=== PATIENT | male | born 1945 | race Caucasian/White ===

== ENCOUNTER 2017-12-13 00:14 | Inpatient (IN) | payer OTHER ==
[2017-12-13] VITALS (9 sets, daily range): BP systolic 103–189; BP diastolic 45–93
[~2017-12-13] VITALS: Ht 180.3 cm; Wt 65.8 kg
[~2017-12-13 00:14] MED LIST: FOLIC ACID1 MG PO; KEPPRA 500 MG500 M1 PO; MULTIVITAMINS1 EAC7 PO; REMERON15 MG PO; RESTORIL15 MG PO; VITAMIN B-1100 M1 PO
[2017-12-13 01:12] LABS: ABSOLUTE NEUTROPHILS 5.6 thou/uL (1.4-8.2); BASOPHILS 0.2 % (0.0-2.0); EOSINOPHILS 0.1 % (0.0-3.0); HEMATOCRIT 34.3 % (42.0-52.0); HEMOGLOBIN 12.1 gm/dL (14.0-18.0); LYMPHOCYTES 13.4 % (24.0-44.0); MCH 30.2 pg (26.0-34.0); MCHC 35.2 g/dL (28.0-37.0); MCV 85.9 fL (80.0-100.0); MONOCYTES 6.4 % (1.0-8.0); PLATELET COUNT 197 thou/uL (150-400); POLYS 79.9 % (36.0-66.0); RDW 12.5 % (10.5-14.5)
[2017-12-13 01:18] LABS: CALCIUM 7.9 mg/dL (8.5-10.1); CREATININE 0.6 mg/dL (0.7-1.3); POTASSIUM 3.6 mmol/L (3.5-5.1)
[2017-12-13 01:24] LABS: ALBUMIN 3.7 g/dL (3.4-5.0); APTT 29.9 Seconds (24.5-32.8); PROTIME 10.7 Seconds (9.3-11.4); TOTAL BILIRUBIN 0.9 mg/dL (<0.1-1.0); TOTAL PROTEIN 6.6 g/dL (6.4-8.2)
[2017-12-13] MEDS ORDERED: TYLENOL325 MG PO (01:25)
[2017-12-13] MEDS ORDERED: ONDANSETRON HCL4 M2 PO (01:26)
[2017-12-13] MEDS ORDERED: NAMENDA 10 MG T10 MG PO (01:30)
[2017-12-13] MEDS ORDERED: RISPERDAL 1 MG T1 MG PO (01:30)
[2017-12-13] MEDS ORDERED: TRAZODONE HCL50 MG PO (01:30)
[2017-12-13] MEDS ORDERED: RIVASTIGMINE1.5 MG PO (01:30)
[2017-12-13 06:40] LABS: HEMOGLOBIN 12.9 gm/dL (14.0-18.0)
[2017-12-13 06:49] LABS: CALCIUM 8.2 mg/dL (8.5-10.1); CREATININE 0.5 mg/dL (0.7-1.3); POTASSIUM 3.6 mmol/L (3.5-5.1)
[2017-12-13 12:54] LABS: HEMATOCRIT 33.7 % (42.0-52.0); HEMOGLOBIN 11.9 gm/dL (14.0-18.0)
[2017-12-13 13:00] LABS: CALCIUM 7.8 mg/dL (8.5-10.1); CREATININE 0.5 mg/dL (0.7-1.3); POTASSIUM 3.4 mmol/L (3.5-5.1)
[2017-12-13 13:05] LABS: % SATURATION 43 % (20-39); IRON 107 ug/dL (65-175); TIBC 247 ug/dL (250-450)
[2017-12-13 18:28] LABS: HEMATOCRIT 36.4 % (42.0-52.0); HEMOGLOBIN 12.6 gm/dL (14.0-18.0)
[2017-12-13 19:08] LABS: HAV IgM AB (ANTI-HAV IgM) Negative (Negative); HEPATITIS B SURFACE AG Negative (Negative); HEPATITIS C VIRUS AB >11.0 (0.0-0.9)
[2017-12-14 00:34] LABS: HEMATOCRIT 40.5 % (42.0-52.0); HEMOGLOBIN 13.8 gm/dL (14.0-18.0)
[2017-12-14 09:05] VITALS: BP 144/83
[2017-12-14 11:24] VITALS: BP 144/83
[2017-12-14 12:16] LABS: CALCIUM 8.4 mg/dL (8.5-10.1); CREATININE 0.7 mg/dL (0.7-1.3); POTASSIUM 3.3 mmol/L (3.5-5.1)
[2017-12-14 16:57] VITALS: BP 141/85
[2017-12-14 20:41] VITALS: BP 114/68
[2017-12-15 00:50] LABS: CALCIUM 8.6 mg/dL (8.5-10.1); CREATININE 0.7 mg/dL (0.7-1.3); POTASSIUM 3.2 mmol/L (3.5-5.1)
[2017-12-15 04:59] VITALS: BP 130/102
[2017-12-15 06:17] LABS: HEMATOCRIT 38.3 % (42.0-52.0); HEMOGLOBIN 13.2 gm/dL (14.0-18.0); MCH 30.1 pg (26.0-34.0); MCHC 34.4 g/dL (28.0-37.0); MCV 87.4 fL (80.0-100.0); RBC 4.38 mil/uL (4.50-6.00); RDW 12.8 % (10.5-14.5)
[2017-12-15 08:00] VITALS: BP 135/58
[2017-12-15 14:29] VITALS: BP 135/58
[2017-12-15 16:00] VITALS: BP 116/57
[2017-12-15 23:26] VITALS: BP 92/54
[2017-12-16 04:26] VITALS: BP 86/58
[2017-12-16 04:34] VITALS: BP 128/69
[2017-12-16 06:22] LABS: CALCIUM 8.5 mg/dL (8.5-10.1); CREATININE 0.6 mg/dL (0.7-1.3); POTASSIUM 3.1 mmol/L (3.5-5.1)
[2017-12-16 07:36] VITALS: BP 107/61
[2017-12-16] MEDS ORDERED: TRIMETHOPRIM /P10 M1 OPHTHALMIC (13:57)
[2018-01-22] MEDS ORDERED: CEFUROXIME500 MG PO (09:02)
[2018-01-22] MEDS ORDERED: REMERON15 MG PO (09:02)
[2018-01-22] MEDS ORDERED: PROTONIX 20 MG20 MG PO (09:02)
[2018-01-22] MEDS ORDERED: NAMENDA 5 MG TAB5 M1 PO (09:02)
[2018-01-23] MEDS ORDERED: REMERON15 MG PO ×3 (13:38→14:12)
[2018-01-23] MEDS ORDERED: NAMENDA 5 MG TAB5 M1 PO ×2 (13:38→14:16)
[2018-01-23] MEDS ORDERED: CEFUROXIME500 MG PO ×2 (13:59→14:11)
[2018-01-23] MEDS ORDERED: NAMENDA 10 MG T10 MG PO (14:14)
== END 2017-12-16 16:02 | DRG 377 ==
LOC: ER 00:14 → 4S 02:29 → EROBS 02:29 → 4S 03:57 → 4W 12-15 12:17
PROVIDERS: Emergency Medicine; Hospitalist; Nurse Practitioner; Nurse Practitioner Acute Care
DX: K92.2 Gastrointestinal hemorrhage, unspecified (principal); E43 Unspecified severe protein-calorie malnutrition; E87.1 Hypo-osmolality and hyponatremia; J44.9 Chronic obstructive pulmonary disease, unspecified; F03.90 Unspecified dementia, unspecified severity, without behavioral disturbance, psychotic disturbance, mood disturbance, and anxiety; E83.51 Hypocalcemia; F31.9 Bipolar disorder, unspecified; M19.90 Unspecified osteoarthritis, unspecified site; G40.909 Epilepsy, unspecified, not intractable, without status epilepticus; K70.30 Alcoholic cirrhosis of liver without ascites; Z79.899 Other long term (current) drug therapy; Z86.73 Personal history of transient ischemic attack (TIA), and cerebral infarction without residual deficits; Z98.49 Cataract extraction status, unspecified eye; Z87.891 Personal history of nicotine dependence; Z87.81 Personal history of (healed) traumatic fracture; Z68.20 Body mass index [BMI] 20.0-20.9, adult
CPT/HCPCS: 10047; 10102